=== PATIENT | male | born 1995 | race Caucasian/White ===

== ENCOUNTER 2018-02-18 18:29 | Emergency (ER) | payer MEDICAID ==
[~2018-02-18] VITALS: Ht 182.9 cm; Wt 73.0 kg
[2018-02-18] MEDS ORDERED: LIDOCAINE HCL 1% 20ML VIAL (Pyxis) INJ MC ONE (18:45)
[2018-02-18] MEDS ORDERED: BACITRACIN ZINC OINT UDPKT TOP ONE (18:45)
[2018-02-18] MEDS ORDERED: IBUPROFEN 600MG TABLET PO ONE (18:45)
[2018-02-18] MEDS ORDERED: LIDOCAINE HCL/PF 1% 10 MG/ML 5ML VIAL IJ NR ×2 (19:45)
[2018-02-18 20:35] VITALS: BP 111/70
== END 2018-02-19 00:39 | disposition home or self-care (01) ==
LOC: ER 18:29
DX: S01.01XA Laceration without foreign body of scalp, initial encounter (principal); F41.9 Anxiety disorder, unspecified; W22.09XA Striking against other stationary object, initial encounter; Y93.9 Activity, unspecified; Y92.9 Unspecified place or not applicable
CPT/HCPCS: 12002; 99283; Z7610; J3490